=== PATIENT | male | born 1960 | race African-American/Black ===

== ENCOUNTER 2020-04-18 06:29 | Outpatient (REF) | payer SELFPAY ==
[2020-04-18 07:50] LABS: Alanine Aminotransferase 26 U/L (0-40); Albumin Level 4.2 g/dL (3.5-5.0); Alkaline Phosphatase 57 U/L (39-117); Aspartate Amino Transferase 21 U/L (5-37); Bilirubin Direct 0.2 mg/dL (0.0-0.5); Bilirubin Total 0.7 mg/dL (0.0-1.0); Cholesterol 121 mg/dL; Glucose Fasting 113 mg/dL (60-99); HDL Cholesterol 36 mg/dL; LDL Cholesterol Calculated 65 mg/dl; Total Protein 6.7 g/dL (6.5-8.0); Triglycerides 101 mg/dL
[2020-04-18 07:56] LABS: Estimated Average Glucose 143 mg/dL; Hemoglobin A1C 185.9212 umol/L; Hemoglobin A1c % 6.6 %
== END 2020-04-18 06:30 | disposition home or self-care (01) ==
LOC: HO.LAB 06:29
PROVIDERS: PCP Internal Medicine; Visit Provider Internal Medicine
DX: E78.00 Pure hypercholesterolemia, unspecified (principal); E11.9 Type 2 diabetes mellitus without complications
CPT/HCPCS: 80061; 80076; 82947; 83036

== ENCOUNTER 2020-12-12 12:51 | Outpatient (REF) | payer MEDICARE, MEDICAID, SELFPAY ==
[2020-12-12 13:22] LABS: Estimated Average Glucose 177 mg/dL; Hemoglobin A1c % 7.8 %
[2020-12-12 14:03] LABS: Alanine Aminotransferase 17 U/L (0-40); Albumin Level 4.2 g/dL (3.5-5.0); Alkaline Phosphatase 58 U/L (39-117); Aspartate Amino Transferase 15 U/L (5-37); Bilirubin Direct 0.2 mg/dL (0.0-0.5); Bilirubin Total 0.7 mg/dL (0.0-1.0); Cholesterol 134 mg/dL; Glucose Fasting 114 mg/dL (60-99); HDL Cholesterol 38 mg/dL; LDL Cholesterol Calculated 76 mg/dl; Total Protein 6.9 g/dL (6.5-8.0); Triglycerides 100 mg/dL
[2020-12-12 14:16] LABS: Reflex LDLD? No
== END 2020-12-12 12:52 | disposition home or self-care (01) ==
LOC: HO.LNP 12:51
PROVIDERS: Visit Provider Internal Medicine
DX: E11.9 Type 2 diabetes mellitus without complications (principal); E78.00 Pure hypercholesterolemia, unspecified
CPT/HCPCS: 80061; 80076; 82947; 83036

== ENCOUNTER 2021-06-26 10:25 | Outpatient (REF) | payer MEDICARE, MEDICAID, SELFPAY ==
[2021-06-26 10:28] LABS: MANUAL DIFF FLAG NO
[2021-06-26 11:19] LABS: Basophils Absolute Auto 0.1 X10*3/uL (0.0-0.2); Basophils Percent Auto 0.9 % (0-2); Eosinophils Absolute Auto 0.2 X10*3/uL (0.0-0.4); Eosinophils Percent Auto 3.6 % (0-4); Hematocrit 48.9 % (42.0-52.0); Imm Gran Abs Auto 0.04 X10*3/uL (0.00-0.03); Imm Gran Pct Auto 0.6 % (0.0-0.4); Lymphocytes Absolute Auto 2.5 X10*3/uL (1.2-4.9); Lymphocytes Percent Auto 40.2 % (20-40); Mean Corpuscular HGB Conc 30.7 g/dl (31.0-36.0); Mean Corpuscular Hemoglobin 27.3 pg (27.0-33.0); Mean Corpuscular Volume 89.1 fL (80.0-98.0); Mean Platelet Volume 10.5 fL (9.4-12.4); Monocytes Absolute Auto 0.6 X10*3/uL (0.1-1.2); Monocytes Percent Auto 9.3 % (2-11); Neutrophils Absolute Auto 2.9 x10*3/uL (2.0-8.3); Neutrophils Percent Auto 45.4 % (45-73); Platelet Count 207 X10*3/uL (160-400); Red Blood Count 5.49 X10*6/uL (4.60-5.80); White Blood Count 6.3 X10*3/uL (4.8-10.8)
[2021-06-26 11:24] LABS: Appearance Urine CLEAR; Color Urine YELLOW; Glucose Urine UA NEG (NEG); Leukocyte Esterase Urine NEG (NEG); Nitrite Urine NEG (NEG); PH 5.5 (5.0-8.0); Specific Gravity - Urine >= 1.030 (1.005-1.025); Urine Blood NEG (NEG); Urine Ketones NEG (NEG); Urine Protein TRACE MG/DL (NEG-TRACE)
[2021-06-26 11:32] LABS: Alanine Aminotransferase 21 U/L (0-40); Albumin Level 4.1 g/dL (3.5-5.0); Alkaline Phosphatase 59 U/L (39-117); Anion Gap 11 (12-20); Aspartate Amino Transferase 14 U/L (5-37); Bilirubin Total 0.5 mg/dL (0.0-1.0); Blood Urea Nitrogen 17 mg/dL (9-16); Calcium 9.8 mg/dL (8.4-10.2); Carbon Dioxide 30 mmol/L (22-29); Chloride 106 mmol/L (96-108); Cholesterol 142 mg/dL; Estimated Average Glucose 186 mg/dL; Estimated Glomerular Filt Rate > 60; Glucose Fasting 157 mg/dL (60-99); HDL Cholesterol 34 mg/dL; Hemoglobin A1c % 8.1 %; LDL Cholesterol Calculated 82 mg/dl; Potassium 4.4 mmol/L (3.3-5.1); Sodium 143 mmol/L (135-145); Triglycerides 131 mg/dL
[2021-06-26 11:53] LABS: PSA,Total (Free>4and<10) 0.67 ng/mL (0.00-4.00)
[2021-06-26 11:57] LABS: Creatinine Urine 190.24 mg/dL; Microalbum/Creatinine Ratio Ur 51.5 ug/mg cr
[2021-06-26 12:51] LABS: Reflex LDLD? No
== END 2021-06-26 10:26 | disposition home or self-care (01) ==
LOC: HO.LNP 10:25
PROVIDERS: PCP Internal Medicine; Visit Provider Internal Medicine
DX: R79.9 Abnormal finding of blood chemistry, unspecified (principal); I10 Essential (primary) hypertension; E11.9 Type 2 diabetes mellitus without complications; E78.00 Pure hypercholesterolemia, unspecified; D72.820 Lymphocytosis (symptomatic)
CPT/HCPCS: 80053; 80061; 81003; 82043; 83036; 84153; 84154; 85025

== ENCOUNTER 2021-12-12 10:21 | Outpatient (REF) | payer MEDICARE, MEDICAID, SELFPAY ==
[2021-12-12 11:26] LABS: Estimated Average Glucose 194 mg/dL; Hemoglobin A1c % 8.4 %
[2021-12-12 11:38] LABS: Alanine Aminotransferase 18 U/L (0-40); Albumin Level 4.3 g/dL (3.5-5.0); Alkaline Phosphatase 61 U/L (39-117); Aspartate Amino Transferase 13 U/L (5-37); Bilirubin Direct 0.2 mg/dL (0.0-0.5); Bilirubin Total 0.7 mg/dL (0.0-1.0); Cholesterol 148 mg/dL; Glucose Fasting 200 mg/dL (60-99); HDL Cholesterol 33 mg/dL; LDL Cholesterol Calculated 88 mg/dl; Total Protein 7.3 g/dL (6.5-8.0); Triglycerides 136 mg/dL
[2021-12-12 12:58] LABS: Reflex LDLD? No
== END 2021-12-12 10:22 | disposition home or self-care (01) ==
LOC: HO.LNP 10:21
PROVIDERS: PCP Internal Medicine; Visit Provider Internal Medicine
DX: E11.9 Type 2 diabetes mellitus without complications (principal); E78.00 Pure hypercholesterolemia, unspecified
CPT/HCPCS: 80061; 80076; 82947; 83036

== ENCOUNTER 2022-06-29 07:45 | Outpatient (REF) | payer MEDICARE, MEDICAID, SELFPAY ==
[2022-06-29 12:09] LABS: MANUAL DIFF FLAG NO
[2022-06-29 12:30] LABS: Basophils Percent Auto 0.7 % (0-2); Eosinophils Absolute Auto 0.2 X10*3/uL (0.0-0.4); Eosinophils Percent Auto 3.7 % (0-4); Hematocrit 51.1 % (42.0-52.0); Hemoglobin 15.8 g/dl (14.0-18.0); Imm Gran Abs Auto 0.02 X10*3/uL (0.00-0.03); Imm Gran Pct Auto 0.4 % (0.0-0.4); Lymphocytes Absolute Auto 2.3 X10*3/uL (1.2-4.9); Lymphocytes Percent Auto 40.8 % (20-40); Mean Corpuscular HGB Conc 30.9 g/dl (31.0-36.0); Mean Corpuscular Hemoglobin 26.8 pg (27.0-33.0); Mean Corpuscular Volume 86.8 fL (80.0-98.0); Mean Platelet Volume 10.1 fL (9.4-12.4); Monocytes Absolute Auto 0.6 X10*3/uL (0.1-1.2); Monocytes Percent Auto 11.2 % (2-11); Neutrophils Absolute Auto 2.4 x10*3/uL (2.0-8.3); Neutrophils Percent Auto 43.2 % (45-73); Platelet Count 197 X10*3/uL (160-400); Red Blood Count 5.89 X10*6/uL (4.60-5.80); Red Cell Distribution Width 16.9 % (11.0-16.0); White Blood Count 5.6 X10*3/uL (4.8-10.8)
[2022-06-29 12:33] LABS: Appearance Urine Clear; Color Urine Yellow; Glucose Urine UA >=1000 mg/dL (Negative); Leukocyte Esterase Urine Negative (Negative); Nitrite Urine Negative (Negative); PH 5.5 (5.0-9.0); Specific Gravity - Urine >= 1.030 (1.005-1.025); UMIC TRIGGER UA YES; Urine Blood Negative (Negative); Urine Ketones Negative (Negative); Urine Protein Trace mg/dL (Neg-Trace)
[2022-06-29 12:36] LABS: Bacteria Urine None Seen (None Seen); Hyaline Casts Urine 0-2 /LPF (0-2); RBC Urine 0-2 /HPF (0-2); Squamous Epithelial Cell Urine 0-2 /HPF (0-2); WBC Urine 0-5 /HPF (0-5)
[2022-06-29 12:41] LABS: Estimated Average Glucose 154 mg/dL
[2022-06-29 13:06] LABS: Alanine Aminotransferase 16 U/L (0-40); Albumin Level 4.2 g/dL (3.5-5.0); Alkaline Phosphatase 62 U/L (39-117); Anion Gap 14 (12-20); Aspartate Amino Transferase 15 U/L (5-37); Bilirubin Total 0.7 mg/dL (0.0-1.0); Blood Urea Nitrogen 25 mg/dL (9-16); Calcium 9.9 mg/dL (8.4-10.2); Carbon Dioxide 30 mmol/L (22-29); Chloride 105 mmol/L (96-108); Cholesterol 150 mg/dL; Estimated Glomerular Filt Rate 54; Glucose Fasting 130 mg/dL (60-99); HDL Cholesterol 36 mg/dL; LDL Cholesterol Calculated 93 mg/dl; PSA,Total (Free>4and<10) 0.69 ng/mL (0.00-4.00); Potassium 4.5 mmol/L (3.3-5.1); Sodium 144 mmol/L (135-145); Triglycerides 109 mg/dL
[2022-06-29 13:15] LABS: Creatinine Urine 118.36 mg/dL; Microalbum/Creatinine Ratio Ur 32.1 ug/mg cr
== END 2022-06-29 07:46 | disposition home or self-care (01) ==
LOC: HO.LNP 07:45
PROVIDERS: Visit Provider Internal Medicine
DX: Z00.00 Encounter for general adult medical examination without abnormal findings (principal); Z12.5 Encounter for screening for malignant neoplasm of prostate; I12.9 Hypertensive chronic kidney disease with stage 1 through stage 4 chronic kidney disease, or unspecified chronic kidney disease; E11.22 Type 2 diabetes mellitus with diabetic chronic kidney disease; N18.9 Chronic kidney disease, unspecified; D72.820 Lymphocytosis (symptomatic); E78.00 Pure hypercholesterolemia, unspecified
CPT/HCPCS: 80053; 80061; 81001; 82043; 83036; 84153; 85025

== ENCOUNTER 2022-10-05 11:41 | Outpatient (REF) | payer MEDICARE, MEDICAID, SELFPAY ==
[2022-10-05 12:30] LABS: Estimated Average Glucose 163 mg/dL; Hemoglobin A1c % 7.3 %
[2022-10-05 12:33] LABS: Alanine Aminotransferase 18 U/L (0-40); Albumin Level 4.2 g/dL (3.5-5.0); Alkaline Phosphatase 60 U/L (39-117); Aspartate Amino Transferase 16 U/L (5-37); Bilirubin Direct < 0.2 mg/dL (0.0-0.5); Bilirubin Total 0.6 mg/dL (0.0-1.0); Cholesterol 140 mg/dL; Glucose Fasting 131 mg/dL (60-99); HDL Cholesterol 36 mg/dL; LDL Cholesterol Calculated 88 mg/dl; Total Protein 6.8 g/dL (6.5-8.0); Triglycerides 81 mg/dL
[2022-10-05 13:57] LABS: Reflex LDLD? No
== END 2022-10-05 11:42 | disposition home or self-care (01) ==
LOC: HO.LNP 11:41
PROVIDERS: Visit Provider Internal Medicine
DX: E11.9 Type 2 diabetes mellitus without complications (principal); E78.00 Pure hypercholesterolemia, unspecified
CPT/HCPCS: 80061; 80076; 82947; 83036

== ENCOUNTER 2022-12-28 10:58 | Outpatient (REF) | payer MEDICARE, MEDICAID, SELFPAY ==
[2022-12-28 12:03] LABS: Estimated Average Glucose 143 mg/dL; Hemoglobin A1c % 6.6 %
[2022-12-28 12:11] LABS: Alanine Aminotransferase 19 U/L (0-40); Albumin Level 4.3 g/dL (3.5-5.0); Alkaline Phosphatase 59 U/L (39-117); Aspartate Amino Transferase 16 U/L (5-37); Bilirubin Direct 0.2 mg/dL (0.0-0.5); Bilirubin Total 0.7 mg/dL (0.0-1.0); Cholesterol 137 mg/dL; Glucose Fasting 120 mg/dL (60-99); HDL Cholesterol 37 mg/dL; LDL Cholesterol Calculated 83 mg/dl; Total Protein 6.9 g/dL (6.5-8.0); Triglycerides 88 mg/dL
[2022-12-28 13:53] LABS: Reflex LDLD? No
== END 2022-12-28 10:59 | disposition home or self-care (01) ==
LOC: HO.LNP 10:58
PROVIDERS: Visit Provider Internal Medicine
DX: E11.9 Type 2 diabetes mellitus without complications (principal); E78.00 Pure hypercholesterolemia, unspecified
CPT/HCPCS: 80061; 80076; 82947; 83036

== ENCOUNTER 2023-07-05 11:20 | Outpatient (REF) | payer MEDICARE, MEDICAID, SELFPAY ==
[2023-07-05 11:28] LABS: MANUAL DIFF FLAG NO
[2023-07-05 11:36] LABS: Appearance Urine Clear; Basophils Percent Auto 0.7 % (0-2); Color Urine Yellow; Eosinophils Absolute Auto 0.2 X10*3/uL (0.0-0.4); Glucose Urine UA 500 mg/dL (Negative); Hematocrit 51.6 % (42.0-52.0); Hemoglobin 15.7 g/dl (14.0-18.0); Imm Gran Abs Auto 0.03 X10*3/uL (0.00-0.03); Imm Gran Pct Auto 0.5 % (0.0-0.4); Leukocyte Esterase Urine Negative (Negative); Lymphocytes Absolute Auto 2.2 X10*3/uL (1.2-4.9); Lymphocytes Percent Auto 39.6 % (20-40); Mean Corpuscular HGB Conc 30.4 g/dl (31.0-36.0); Mean Corpuscular Volume 88.8 fL (80.0-98.0); Mean Platelet Volume 10.6 fL (9.4-12.4); Monocytes Absolute Auto 0.6 X10*3/uL (0.1-1.2); Monocytes Percent Auto 10.2 % (2-11); Neutrophils Absolute Auto 2.6 x10*3/uL (2.0-8.3); Nitrite Urine Negative (Negative); PH 5.5 (5.0-9.0); Platelet Count 195 X10*3/uL (160-400); Red Blood Count 5.81 X10*6/uL (4.60-5.80); Red Cell Distribution Width 15.8 % (11.0-16.0); Specific Gravity - Urine >= 1.030 (1.005-1.025); Urine Blood Negative (Negative); Urine Ketones Negative (Negative); Urine Protein Trace mg/dL (Neg-Trace); White Blood Count 5.6 X10*3/uL (4.8-10.8)
[2023-07-05 11:41] LABS: Bacteria Urine None Seen (None Seen); Hyaline Casts Urine 0-2 /LPF (0-2); RBC Urine 0-2 /HPF (0-2); Squamous Epithelial Cell Urine 0-2 /HPF (0-2); WBC Urine 0-5 /HPF (0-5)
[2023-07-05 11:51] LABS: Alanine Aminotransferase 23 U/L (0-40); Albumin Level 4.3 g/dL (3.5-5.0); Alkaline Phosphatase 63 U/L (39-117); Anion Gap 14 (12-20); Aspartate Amino Transferase 20 U/L (5-37); Bilirubin Total 0.6 mg/dL (0.0-1.0); Blood Urea Nitrogen 25 mg/dL (9-16); Calcium 9.7 mg/dL (8.4-10.2); Carbon Dioxide 28 mmol/L (22-29); Chloride 105 mmol/L (96-108); Cholesterol 148 mg/dL (<200); Estimated Glomerular Filt Rate 57; Glucose Random 150 mg/dL (60-115); HDL Cholesterol 41 mg/dL (>40); LDL Cholesterol Calculated 82 mg/dL (<100); Potassium 4.5 mmol/L (3.3-5.1); Sodium 142 mmol/L (135-145); Total Protein 7.4 g/dL (6.5-8.0); Triglycerides 125 mg/dL (<150)
[2023-07-05 12:05] LABS: Estimated Average Glucose 157 mg/dL; Hemoglobin A1c % 7.1 % (<6.0)
[2023-07-05 12:10] LABS: Creatinine Urine 119.15 mg/dL; Microalbum/Creatinine Ratio Ur 56.2 ug/mg cr (<30)
[2023-07-05 12:13] LABS: PSA,Total (Free>4and<10) 0.78 ng/mL (0.00-4.00)
== END 2023-07-05 11:21 | disposition home or self-care (01) ==
LOC: HO.LNP 11:20
PROVIDERS: Visit Provider Internal Medicine
DX: Z00.00 Encounter for general adult medical examination without abnormal findings (principal); I10 Essential (primary) hypertension; E11.9 Type 2 diabetes mellitus without complications; E78.00 Pure hypercholesterolemia, unspecified; N18.9 Chronic kidney disease, unspecified; D72.820 Lymphocytosis (symptomatic); Z12.5 Encounter for screening for malignant neoplasm of prostate
CPT/HCPCS: 80053; 80061; 81001; 82043; 82570; 83036; 84153; 85025

== ENCOUNTER 2024-01-13 11:20 | Outpatient (REF) | payer MEDICARE, MEDICAID, SELFPAY ==
[2024-01-13 12:11] LABS: Estimated Average Glucose 160 mg/dL; Hemoglobin A1c % 7.2 % (<6.0)
[2024-01-13 12:12] LABS: Alanine Aminotransferase 23 U/L (0-40); Albumin Level 4.2 g/dL (3.5-5.0); Alkaline Phosphatase 62 U/L (39-117); Aspartate Amino Transferase 20 U/L (5-37); Bilirubin Direct 0.2 mg/dL (0.0-0.5); Bilirubin Total 0.5 mg/dL (0.0-1.0); Cholesterol 135 mg/dL (<200); Glucose Fasting 130 mg/dL (60-99); HDL Cholesterol 39 mg/dL (>40); LDL Cholesterol Calculated 77 mg/dL (<100); Total Protein 7.1 g/dL (6.5-8.0); Triglycerides 99 mg/dL (<150)
[2024-01-13 14:20] LABS: Reflex LDLD? No
== END 2024-01-13 11:21 | disposition home or self-care (01) ==
LOC: HO.LNP 11:20
PROVIDERS: Visit Provider Internal Medicine
DX: E11.9 Type 2 diabetes mellitus without complications (principal); E78.00 Pure hypercholesterolemia, unspecified
CPT/HCPCS: 80061; 80076; 82947; 83036

== ENCOUNTER 2024-07-10 11:05 | Outpatient (REF) | payer MEDICARE, MEDICAID, SELFPAY ==
[2024-07-10 11:09] LABS: MANUAL DIFF FLAG NO
[2024-07-10 11:24] LABS: Basophils Absolute Auto 0.1 X10*3/uL (0.0-0.2); Basophils Percent Auto 1.1 % (0-2); Eosinophils Absolute Auto 0.2 X10*3/uL (0.0-0.4); Eosinophils Percent Auto 3.7 % (0-4); Hemoglobin 15.8 g/dl (14.0-18.0); Imm Gran Abs Auto 0.02 X10*3/uL (0.00-0.03); Imm Gran Pct Auto 0.4 % (0.0-0.4); Lymphocytes Absolute Auto 2.2 X10*3/uL (1.2-4.9); Lymphocytes Percent Auto 39.4 % (20-40); Mean Corpuscular HGB Conc 30.4 g/dl (31.0-36.0); Mean Corpuscular Hemoglobin 27.1 pg (27.0-33.0); Mean Corpuscular Volume 89.2 fL (80.0-98.0); Mean Platelet Volume 9.8 fL (9.4-12.4); Monocytes Absolute Auto 0.6 X10*3/uL (0.1-1.2); Monocytes Percent Auto 10.3 % (2-11); Neutrophils Absolute Auto 2.5 x10*3/uL (2.0-8.3); Neutrophils Percent Auto 45.1 % (45-73); Platelet Count 189 X10*3/uL (160-400); Red Blood Count 5.83 X10*6/uL (4.60-5.80); Red Cell Distribution Width 16.8 % (11.0-16.0); White Blood Count 5.5 X10*3/uL (4.8-10.8)
[2024-07-10 11:25] LABS: Appearance Urine Clear; Color Urine Yellow; Glucose Urine UA >=1000 mg/dL (Negative); Leukocyte Esterase Urine Negative (Negative); Nitrite Urine Negative (Negative); PH 5.5 (5.0-9.0); Specific Gravity - Urine >= 1.030 (1.005-1.025); UMIC TRIGGER UACC YES; Urine Blood Negative (Negative); Urine Ketones Negative (Negative); Urine Protein 30 (1+) mg/dL (Neg-Trace)
[2024-07-10 11:30] LABS: Bacteria Urine None Seen (None Seen); Hyaline Casts Urine 0-2 /LPF (0-2); RBC Urine 0-2 /HPF (0-2); Squamous Epithelial Cell Urine 0-2 /HPF (0-2); WBC Urine 0-5 /HPF (0-5)
[2024-07-10 11:56] LABS: Creatinine Urine 131.57 mg/dL; Microalbum/Creatinine Ratio Ur 55.4 ug/mg cr (<30)
[2024-07-10 11:58] LABS: Estimated Average Glucose 157 mg/dL; Hemoglobin A1C 214.4074 umol/L; Hemoglobin A1c % 7.1 % (<6.0); Total Hemoglobin (HGBA1C) 3968.0073 umol/L
[2024-07-10 12:05] LABS: Alanine Aminotransferase 22 U/L (0-40); Albumin Level 4.3 g/dL (3.5-5.0); Alkaline Phosphatase 68 U/L (39-117); Anion Gap 12 (12-20); Aspartate Amino Transferase 30 U/L (5-37); Bilirubin Total 0.6 mg/dL (0.0-1.0); Blood Urea Nitrogen 20 mg/dL (9-16); Calcium 9.2 mg/dL (8.4-10.2); Carbon Dioxide 28 mmol/L (22-29); Chloride 107 mmol/L (96-108); Cholesterol 138 mg/dL (<200); Estimated Glomerular Filt Rate > 60; Glucose Fasting 133 mg/dL (60-99); HDL Cholesterol 33 mg/dL (>40); LDL Cholesterol Calculated 84 mg/dL (<100); Potassium 4.1 mmol/L (3.3-5.1); Sodium 143 mmol/L (135-145); Total Protein 7.2 g/dL (6.5-8.0); Triglycerides 108 mg/dL (<150)
[2024-07-10 12:09] LABS: PSA,Total (Free>4and<10) 0.85 ng/mL (0.00-4.00)
--- OUTSIDE RECORDS SUMMARY | 2024-07-10 12:55 | XMS_ITS ---
Author Organization Srinivas Moya MD Address [address] [place] [address] [phone] Support Name Relationship Address Phone Jose Stovall Caregiver [address] [facility] [address] [place] [address] [phone] Srinivas Moya Caregiver [facility] [address] [place] [address] [phone] Easton Douglas Caregiver [address] [facility] [address] janette [address] [place] [address] [id number] Gonzalez Subramanian Caregiver [address] [facility] [address] [place] [address] [id number] GRETCHEN MCCULLOUGH Caregiver [address] [facility] [address] [place] [address] [phone] PEGGY TREADWELL Caregiver 10 [facility] [address] [place] [address] [phone] Krysta Dominique Caregiver [address] [facility] [address] [place] [address] [phone] MASSIEL NUÑEZ Caregiver [address] [facility] [address] [place] [address] [phone] Oscar Duran Caregiver 10 [facility] [address] [place] [address] [phone] GIGI CROWLEY Emergency Contact [address] [place] [phone] Maximiliano Ovalle Guarantor Unknown [phone] Care Team Providers Care Credit Collections Manager Name Role Phone Srinivas Moya Primary Care Provider RESULTS Component Value Reference Range Notes Complete Blood Count Auto Di ff (Not yet reviewed by provider) Interpretation: Performing Lab:[facility], [address] [place] [phone] Notes/Report: White Blood Count 5.5 4.8-10.8 X10*3/uL Red Blood Count 5.83 4.60-5.80 X10*6/uL Hemoglobin 15.8 14.0-18.0 g/dl Hematocrit 52.0 42.0-52.0 % Mean Corpuscular Volume 89.2 80.0-98.0 fL Mean Corpuscular Hemoglobin 27.1 27.0-33.0 pg Mean Corpuscular HGB Conc 30.4 31.0-36.0 g/dl Red Cell Distribution Width 16.8 11.0-16.0 % Platelet Count 189 160-400 X10*3/uL Mean Platelet Volume 9.8 9.4-12.4 fL Neutrophils Percent Auto 45.1 45-73 % Imm Gran Pct Auto 0.4 0.0-0.4 % Lymphocytes Percent Auto 39.4 20-40 % Monocytes Percent Auto 10.3 2-11 % Eosinophils Percent Auto 3.7 0-4 % Basophils Percent Auto 1.1 0-2 % NRBC Pct Auto 0.0 0.0-0.2 /100WBC Neutrophils Absolute Auto 2.5 2.0-8.3 x10*3/u L Imm Gran Abs Auto 0.02 0.00-0.03 X10*3/uL Lymphocytes Absolute Auto 2.2 1.2-4.9 X10*3/u L Monocytes Absolute Auto 0.6 0.1-1.2 X10*3/uL Eosinophils Absolute Auto 0.2 0.0-0.4 X10*3/u L Basophils Absolute Auto 0.1 0.0-0.2 X10*3/uL NRBC Abs Auto 0.000 0.0-0.012 X10*3/uL Comprehensive [place]. Panel Fa st (Not yet reviewed by provider) Interpretation: Performing Lab:[facility], [address] [place] [phone] Notes/Report: Sodium 143 135-145 mmol/L Potassium 4.1 3.3-5.1 mmol/L Chloride 107 96-108 mmol/L Carbon Dioxide 28 22-29 mmol/L Anion Gap 12 12-20 Blood Urea Nitrogen 20 9-16 mg/dL Creatinine 1.16 0.5-1.4 mg/dL Estimated Glomerular Filt Rate > 60 Chronic Kidney Disease: Estimated GFR < 60 mL/min/1.73m2 Severe Kidney Disease: Estimated GFR < 15 mL/min/1.73m2 Glucose Fasting 133 60-99 mg/dL A fasting glucose of 126 mg/dl or greater on more than one occasion is considered diagnostic of diabetes. Calcium 9.2 8.4-10.2 mg/dL Bilirubin Total 0.6 0.0-1.0 mg/dL Aspartate Amino Transferase 30 5-37 U/L Alanine Aminotransferase 22 0-40 U/L Total Protein 7.2 6.5-8.0 g/dL Albumin Level 4.3 3.5-5.0 g/dL Alkaline Phosphatase 68 39-117 U/L Lipid Panel Reviewed date:07/10/2024 12:20:14 PM Interpretation: Performing Lab:[address] [phone] Notes/Report: Triglycerides 108 <150 mg/dL Desirable Triglyceride: less than 150 mg/dL Borderline High Triglyceride 150-199 mg/dL High Triglyceride: 200-499 mg/dL Very High Triglyceride: greater than or equal to 5OO mg/dL Cholesterol 138 <200 mg/dL Desirable Cholesterol: less than 200 mg/dL Borderline High Cholesterol: 200-239 mg/dL High Cholesterol: greater than 239 mg/dL LDL Cholesterol Calculated 84 <100 mg/dL Desirable LDL: less than 100 mg/dL Near Optimal/Above Optimal LDL: 110-129 mg/dL Borderline High LDL: 130-159 mg/dL High LDL: 160-189 mg/dL Very High LDL: greater than or equal to 190 mg/dL HDL Cholesterol 33 >40 mg/dL Desirable HDL: greater than 40 mg/dL Note: This HDL assay may give artificially low results in patients with liver disease. PSA,Total (Free>4and<10) Reviewed date:07/10/2024 12:26:54 PM Interpretation: Performing Lab:[address] [phone] Notes/Report: PSA,Total (Free>4and<10) 0.85 0.00-4.00 ng/mL A Free PSA was not performed: The percentage of Free PSA can be used to enhance the differentiation of prostate cancer from benign prostatic disease in subjects whose PSA levels are between 4.0 and 10.0 ng/mL. For subjects whose PSA levels are below 4.0 or above 10.0 ng/mL, the risk of prostate cancer is determined on the basis of the PSA alone. Therefore the % Free PSA is recommended only for those subjects whose PSA levels are between 4.0 and 10.0 ng/mL. PSA methodology: Tran Alinity i Chemiluminescent Microparticle Immunoassay (CMIA) Microalbumin, Random Reviewed date:07/10/2024 12:26:44 PM Interpretation: Performing Lab:[address] [phone] Notes/Report: Creatinine Urine 131.57 Microalbumin Urine 73.0 Microalbum/Creatinine Ratio Ur 55.4 <30 ug/mg cr Albumin/Creatinine Ratio Reference Ranges: Normal: < 30 ug/mg creatinine Microalbuminuria: 30 - 300 ug/mg creatinine Clinical Albuminuria: > 300 ug/mg creatinine Hemoglobin A1c Reviewed date:07/10/2024 12:27:02 PM Interpretation: Performing Lab:[address] [phone] Notes/Report: Hemoglobin A1c % 7.1 <6.0 % Hemoglobin A1C Reference Range Adults: 4.8 - 6.0 % Non diabetic: < 6.0 % Goal: < 7.0 % Additional Action Suggested: > 8.0 % Note: Hemoglobin A1c results are invalid for patients with abnormal amounts of HbF. Blood transfusions may impact the HbA1c concentration in the patient sample. Estimated Average Glucose 157 eAG = Estimated average glucose which is %A1C expressed as average glucose, using the formula of the [id number]-[id number] Average Glucose study (ADAG), Diabetes Care, Vol.31,#8, Feb. 2007 UA ClnCatch+Micro w/rflx Cul t Reviewed date:07/10/2024 12:31:34 PM Interpretation: Performing Lab:[address] [phone] Notes/Report: Urine, Clean Catch Color Urine Yellow Appearance Urine Clear PH 5.5 5.0-9.0 Glucose Urine UA >=1000 Negative mg/dL Urine Blood Negative Negative Specific [place] - Urine >= 1.030 1.005-1.025 Urine Protein 30 (1+) Neg-Trace mg/dL Urine Ketones Negative Negative mg/dL Nitrite Urine Negative Negative Leukocyte Esterase Urine Negative Negative RBC Urine 0-2 0-2 /HPF WBC Urine 0-5 0-5 /HPF Squamous Epithelial Cell Urine 0-2 0-2 /HPF Bacteria Urine None Seen None Seen Hyaline Casts Urine 0-2 0-2 /LPF REASON FOR VISIT FASTING LABS Encounters Encounter Location Date Provider Diagnosis Srinivas Moya MD [address] [place] [address] [address] [place], [place] [phone] 07/10/2024 Srinivas Moya Essential hypertensi on I10 ; Type 2 diabetes mellitus without complication E11.9 ; Pure hypercholesterolemia E78.00 ; Chronic kidney disease, unspecified CKD stage N18.9 and Lymphocytosis D72.820 ASSESSMENTS Encounter Date Diagnosis Assessment Notes Treatment Notes Treatment Clinical Notes 07/10/2024 Essential hypertensi on (ICD-10 - I10) 07/10/2024 Type 2 diabetes genna itus without complication (ICD-10 - E11.9) 07/10/2024 Pure hypercholestero lemia (ICD-10 - E78.00) 07/10/2024 Chronic kidney disea se, unspecified CKD stage (ICD-10 - N18.9) 07/10/2024 Lymphocytosis (ICD-1 0 - D72.820) PLAN OF TREATMENT Pending Test Test Name Order Date Complete Blood Count Auto Diff 5 Comprehensive [place]. Panel Fast 5 Next Appt Details Provider Name:Srinivas pierson, 07/16/2024 08:30:00 AM, [address] [place] [address], [address], [place], [place], [phone],
--- OUTSIDE RECORDS SUMMARY | 2024-07-10 12:56 | XMS_ITS ---
Author Organization Srinivas Moya MD Address [address] [place] [address] [phone] Support Name Relationship Address Phone Jose Stovall Caregiver 10 [facility] [address] [facility] [address] [place] [address] [phone] Srinivas M[facility] [address] [place] [address] [phone] MisaelEaston Caregiver [address] [facility] [address] janette [address] [place] [address] [phone] Gonzalez Subramanian Caregiver [address] [facility] [address] [place] [address] [id number] GRETCHEN MCCULLOUGH Caregiver [address] [facility] [address] [place] [address] [phone] PEGGY TREADWELL Caregiver 10 [facility] [address] [place] [address] [phone] Krysta Dominique Caregiver [address] [facility] [address] [place] [address] [phone] MASSIEL NUÑEZ Caregiver 10 [facility] [address] [place] [address] [phone] Oscar Duran Caregiver [facility] [address] [place] [address] [phone] GIGI CROWLEY Emergency Contact [address] [place] [phone] Maximiliano Ovalle Guarantor Unknown [phone] Care Team Providers Care Cloth Colors Examiner Name Role Phone Srinivas Moya Primary Care Provider [phone] REASON FOR VISIT REFILL FUEROSIMIDE 20 MG MEDICATIONS Medication SIG (Take, Route, Fr equency, Duration) Notes Start Date End Date Status Furosemide 20MG 1 tab orally Twice a day for 90 days Active Encounters Encounter Location Date Provider Diagnosis Srinivas Moya MD [address] [place] [address] [address] [place], [place] [phone] 04/10/2024 Srinivas Moya PLAN OF TREATMENT Medication Medication Name Sig Start Date Stop Date Notes Furosemide 20MG 1 tab orally Twice a day for 90 days Next Appt Details Provider Name:Srinivas pierson, 07/16/2024 08:30:00 AM, [address] [place] [address], [address], [place], [place], [phone],
--- OUTSIDE RECORDS SUMMARY | 2024-07-10 12:56 | XMS_ITS ---
Author Organization Srinivas Moya MD Address [address] [place] [address] [phone] Support Name Relationship Address Phone Jose Stovall Caregiver 10 [facility] [address] [place] [address] [phone] Srinivas Moya [facility]giver [facility] [address] [place] [address] [phone] MisaelEaston Caregiver [address] [facility] [address]ette [address] [place] [address] [id number] Gonzalez Subramanian Caregiver 10 [facility] [address] [place] [address] [id number] GRETCHEN MCCULLOUGH Caregiver 10 [facility] [address] [place] [address] [id number] PEGGY TREADWELL Caregiver 10 [facility] [address] [place] [address] [id number] Krysta Dominique Caregiver 10 [facility] [address] [place] [address] [id number] MASSIEL NUÑEZ Caregiver 10 [facility] [address] [place] [address] [id number] Oscar Duran Caregiver 10 [facility] [address] [place] [address] [phone] GIGI CROWLEY Emergency Contact [address] [place] [address] Maximiliano Ovalle Guarantor Unknown Care Team Providers Care Flat Spring Assembler Name Role Phone Srinivas Moya Primary Care Provider [phone] ALLERGIES Allergen (clinical drug ingredient) Drug/Non Drug Allergy documented on EMR Reaction Allergy Type Onset Date Status Vaccine product containing Influenza virus antigen (medicinal product) flu vaccine (uncoded) hives Allergy Active REASON FOR VISIT talk about Furosemide MEDICATIONS Medication SIG (Take, Route, Frequency, Duration) Notes Start Date End Date Status Indomethacin 50 1 capsule with food Orally Three times a day for 30 days Active Aspir-81 81 MG 1 tablet Orally Once a day Active Cialis 20MG take 1 tablet as nee ded Orally Once a day for 90 days Active Ibuprofen 800 MG 1 tablet Orally Thre e times a day for 90 days Active True Metrix Blood Glucose Test - TEST BS QD In Vitro daily for 90 days 06/17/2019 Active Furosemide 20 MG 1 tablet Orally Once a day for 30 day(s) 04/14/2024 Active Farxiga 10 MG TAKE 1 TABLET BY EDGARDO TH EVERY DAY Orally Once a day Active metFORMIN HCl 1000 MG TAKE 1 TABLET BY M OUT TWICE DAILY WITH MEALS Active True Focus Blood Glucose Strip - as directed In Vitro daily for 30 Active TRUEplus Lancets 30G - use to check suga r invitro twice a day for 30 Active Lisinopril 5 MG TAKE 1 TABLET BY EDGARDO TH EVERY DAY Active Simvastatin 80 MG 1 tablet in the even ing Orally Once a day 07/18/2023 Active Furosemide 20MG 1 tab orally Twice a day for 90 days Active VITAL SIGNS BMI 45.29 kg/m2 04/14/2024 Blood pressure systolic 142 mm Hg 04/14/20 24 Blood pressure diastolic 78 mm Hg 024 Height 72 in 04/14/2024 Weight 334 lbs 04/14/2024 weight is up 3 pounds since 01-17-24 Encounters Encounter Location Date Provider Diagnosis Srinivas Moya MD [address] [place] [address] [place] [phone] 04/14/2024 Srinivas Moya Type 2 diabetes mellitus without complication E11.9 and Bilateral leg edema R60.0 ASSESSMENTS Encounter Date Diagnosis Assessment Notes Treatment Notes Treatment Clinical Notes 04/14/2024 Type 2 diabetes mellitus without complication (ICD-10 - E11.9) sugars in 120 range and after eating 180 04/14/2024 Bilateral leg edema (ICD-10 - R60.0) patient verbalized nderstanding of medication and directions for use, will continue to monitor PLAN OF TREATMENT Medication Medication Name Sig Start Date Stop Date Notes Furosemide 20 MG 1 tablet Orally Once a day for 30 day(s) 04/14/2024 Farxiga 10 MG TAKE 1 TABLET BY EDGARDO TH EVERY DAY Orally Once a day metFORMIN HCl 1000 MG TAKE 1 TABLET BY M OUTH TWICE DAILY WITH MEALS Treatment Notes Assessment Notes Type 2 diabetes mellitus wit hout complication sugars in 120 range and after eating 180 Bilateral leg edema patient verbalized n derstanding of medication and directions for use, will continue to monitor Next Appt Details Provider Name:Srinivas pierson, 07/16/2024 08:30:00 AM, [address] [place] [address], [address], [place], [place], [phone], Progress Notes * Examination Category Sub-Category Detail Notes General Examination GENERAL APPEARANCE: alert, w ell hydrated, in no distress HEAD: normocephalic HEART: no murmurs, rubs, ga llops, regular rate and rhythm LUNGS: no wheezes, rales, r honchi, good air movement, clear to auscultation bilaterally SKIN: good turgor EXTREMITIES: no edema
--- OUTSIDE RECORDS SUMMARY | 2024-07-10 12:56 | XMS_ITS | Patient Health Record ---
Author Organization Srinivas Moya MD Address [address] [place] [address] [phone] Support Name Relationship Address Phone Jose Stovall Caregiver [facility] [address] [place] [address] [phone] Srinivas Moya Caregiver [facility] [address] [place] [address] [phone] MisaelEaston Caregiver [facility] janette [address] [place] [address] [phone] Gonzalez Subramanian Caregiver [facility] [address] [place] [address] [phone] GRETCHEN MCCULLOUGH Caregiver [facility] [address] [place] [address] [phone] PEGGY TREADWELL Caregiver 10 [facility] [address] [place] [address] [phone] Krysta Dominique Caregiver [facility] [address] [place] [address] [phone] MASSIEL NUÑEZ Caregiver 10 [facility] [address] [place] [address] [phone] Oscar Duran Caregiver 10 [facility] [address] [place] [address] [phone] GIGI CROWLEY Emergency Contact [address] [place] [address] Maximiliano Ovalle Guarantor Unknown Care Team Providers Care Conference Translator Name Role Phone Srinivas Moya Primary Care Provider ALLERGIES Allergen (clinical drug ingredient) Drug/Non Drug Allergy documented on EMR Reaction Allergy Type Onset Date Status Vaccine product containing Influenza virus antigen (medicinal product) flu vaccine (uncoded) hives Allergy Active RESULTS Component Value Reference Range Notes Occult Blood, Stool, Guaiac Reviewed date:07/12/2023 12:01:53 PM Interpretation:Negative Performing Lab: Notes/Report: Negative Occult Blood, Stool, Guaiac Neg Diabetic Eye Exam Reviewed date:01/20/2024 10:57:55 AM Interpretation:No diabetic retinopathy Performing Lab: Notes/Report: No diabetic retinopathy Hold Gold Reviewed date:01/13/2024 12:24:25 PM Interpretation: Performing Lab:[facility], [address] [place] [phone] Notes/Report: Hold Gold See Note Specimen held untested for 24 hours; Call to request Chemistry testing. Liver Panel Reviewed date:01/13/2024 04:51:38 PM Interpretation: Performing Lab:[facility], [address] [place] [phone] Notes/Report: Bilirubin Total 0.5 0.0-1.0 mg/dL Bilirubin Direct 0.2 0.0-0.5 mg/dL Aspartate Amino Transferase 20 5-37 U/L Alanine Aminotransferase 23 0-40 U/L Total Protein 7.1 6.5-8.0 g/dL Albumin Level 4.2 3.5-5.0 g/dL Alkaline Phosphatase 62 39-117 U/L Glucose Fasting Reviewed date:01/13/2024 04:44:22 PM Interpretation: Performing Lab:[facility], [address] [place] [phone] Notes/Report: Glucose Fasting 130 60-99 mg/dL A fasting glucose of 126 mg/dl or greater on more than one occasion is considered diagnostic of diabetes. Lipid Panel with Reflex Reviewed date:01/13/2024 04:49:17 PM Interpretation: Performing Lab:[facility], [address] [place] [phone] Notes/Report: Triglycerides 99 <150 mg/dL Desirable Triglyceride: less than 150 mg/dL Borderline High Triglyceride 150-199 mg/dL High Triglyceride: 200-499 mg/dL Very High Triglyceride: greater than or equal to 5OO mg/dL Cholesterol 135 <200 mg/dL Desirable Cholesterol: less than 200 mg/dL Borderline High Cholesterol: 200-239 mg/dL High Cholesterol: greater than 239 mg/dL LDL Cholesterol Calculated 77 <100 mg/dL Desirable LDL: less than 100 mg/dL Near Optimal/Above Optimal LDL: 110-129 mg/dL Borderline High LDL: 130-159 mg/dL High LDL: 160-189 mg/dL Very High LDL: greater than or equal to 190 mg/dL HDL Cholesterol 39 >40 mg/dL Desirable HDL: greater than 40 mg/dL Note: This HDL assay may give artificially low results in patients with liver disease. Hemoglobin A1c Reviewed date:01/13/2024 12:23:02 PM Interpretation: Performing Lab:[facility], [address] [place] [phone] Notes/Report: Hemoglobin A1c % 7.2 <6.0 % Hemoglobin A1C Reference Range Adults: 4.8 - 6.0 % Non diabetic: < 6.0 % Goal: < 7.0 % Additional Action Suggested: > 8.0 % Note: Hemoglobin A1c results are invalid for patients with abnormal amounts of HbF. Blood transfusions may impact the HbA1c concentration in the patient sample. Estimated Average Glucose 160 eAG = Estimated average glucose which is %A1C expressed as average glucose, using the formula of the J3Y-Qoitisu Average Glucose study (ADAG), Diabetes Care, Vol.31,#8, 2007 Complete Blood Count Auto Di ff (Not yet reviewed by provider) Interpretation: Performing Lab:[facility], [address] [place] [phone] Notes/Report: White Blood Count 5.5 4.8-10.8 X10*3/uL [...] NRBC Abs Auto 0.000 0.0-0.012 X10*3/uL Comprehensive [place]. Panel Fa st (Not yet reviewed by provider) Interpretation: Performing Lab:[address] [phone] Notes/Report: Sodium 143 135-145 mmol/L Potassium 4.1 [...] Panel Reviewed date:07/10/2024 12:20:14 PM Interpretation: Performing Lab:[facility] [phone] Notes/Report: Triglycerides 108 <150 mg/dL Desirable Triglyceride: [...] (Free>4and<10) Reviewed date:07/10/2024 12:26:54 PM Interpretation: Performing Lab:[address] [phone] Notes/Report: PSA,Total (Free>4and<10) 0.85 0.00-4.00 ng/mL A [...] Random Reviewed date:07/10/2024 12:26:44 PM Interpretation: Performing Lab:[address] [phone] Notes/Report: Creatinine Urine 131.57 Microalbumin Urine 73.0 Microalbum/Creatinine Ratio Ur 55.4 <30 ug/mg cr Albumin/Creatinine Ratio Reference Ranges: Normal: < 30 ug/mg creatinine Microalbuminuria: 30 - 300 ug/mg creatinine Clinical Albuminuria: > 300 ug/mg creatinine Hemoglobin A1c Reviewed date:07/10/2024 12:27:02 PM Interpretation: Performing Lab:[facility], [address] [place] [phone] Notes/Report: Hemoglobin A1c % 7.1 <6.0 % [...] average glucose, using the formula of the B3O-[place] Average Glucose study (ADAG), Diabetes Care, Vol.31,#8, Feb. 2007 UA ClnCatch+Micro w/rflx Cul t Reviewed date:07/10/2024 12:31:34 PM Interpretation: Performing Lab:[facility], [address] [place] [phone] Notes/Report: Urine, Clean Catch Color Urine Yellow Appearance Urine Clear PH 5.5 5.0-9.0 Glucose Urine UA >=1000 Negative mg/dL Urine Blood Negative Negative Specific [employer] - Urine >= 1.030 1.005-1.025 Urine Protein 30 (1+) Neg-Trace mg/dL Urine Ketones Negative Negative mg/dL Nitrite Urine Negative Negative Leukocyte Esterase Urine Negative Negative RBC Urine 0-2 0-2 /HPF WBC Urine 0-5 0-5 /HPF Squamous Epithelial Cell Urine 0-2 0-2 /HPF Bacteria Urine None Seen None Seen Hyaline Casts Urine 0-2 0-2 /LPF REASON FOR REFERRAL Reason DM foot care Diagnosis 1 Type 2 diabetes genna itus without complication (E11.9) Referral Organization Srinivas Moya MD Referring Provider First Name Srinivas Referring Provider Last Name Nita Referring Provider Speciality Internal M edicine Referred Provider Milla Cortes Referred Provider Specialty Podiatry General Notes Yvonne Stringer 10:46:02 AM EDT > patient is making his own appt, Info faxed Referral Priority Routine MEDICATIONS Medication SIG (Take, Route, Frequency, Duration) Notes Start Date End Date Status True Focus Blood Glucose Strip - as directed In Vitro daily for 30 Active TRUEplus Lancets 30G - use to check suga r invitro twice a day for 30 Active Aspir-81 81 MG 1 tablet Orally [...] a day for 30 day(s) 04/14/2024 Active Lisinopril 5 MG TAKE 1 TABLET BY EDGARDO TH EVERY DAY Active Indomethacin 50 1 capsule with food Orally Three times a day for 30 days Active Farxiga 10 MG TAKE 1 TABLET BY EDGARDO TH EVERY DAY Orally Once a day Active Simvastatin 80 MG 1 tablet in the even ing Orally Once a day 07/18/2023 Active metFORMIN HCl 1000 MG TAKE 1 TABLET BY M OUTH TWICE DAILY WITH MEALS Active Furosemide 20MG 1 tab orally Twice a day for 90 days Active IMMUNIZATIONS Vaccine Route Administration Date Status Comme nts Tetanus Unknown 05/25/2011 Administered SARS-COV-2 Pfizer Unknown 10/07/2020 Administered SARS-COV-2 Pfizer Unknown 10/30/2020 Administered SARS-COV-2 Pfizer Unknown 05/08/2021 Administered Shingrix Unknown 05/08/2021 Administered SARS-COV-2 Pfizer Unknown 05/08/2021 Administered PPSV23 (Pnemovax) Unknown 10/19/2014 Refused Fluarix Quadrivalent Unknown 04/21/2015 Refused Fluarix Quadrivalent Unknown 05/22/2016 Refused PPSV23 (Pnemovax) Unknown 12/13/2016 Refused Fluarix Quadrivalent Unknown 03/12/2017 Refused Fluarix Quadrivalent Unknown 05/12/2018 Refused PPSV23 (Pnemovax) Unknown 11/21/2018 Refused Fluarix Quadrivalent Unknown 06/11/2019 Refused kulwinder rgic to flu shots PPSV23 (Pnemovax) Unknown 12/16/2020 Refused SOCIAL HISTORY Tobacco Use: Social History Observation Description Date Details (start date - stop date) Never Smoker NA - NA Sex Assigned At : Social History Observation Description Sex Assigned At Unknown Tobacco Use/Smoking Question Answer Notes Patient is a nonsmoker Additional Findings: Tobacco Non-User Cu rrent non-smoker, currently using no form of tobacco Alcohol Screen Question Answer Notes Did you have a drink containing alcohol in the p ast year? 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) Active confirmed 419403181 Problem Essential hypertensi on (I10) Active confirmed 14279766 Problem Type 2 diabetes mellitus without complication (E11.9) Active confirmed 93834396 Problem Cervical disc diseas e (M50.90) Active confirmed 708054562 Problem Obstructive sleep apnea (G47.33) Active confirmed 33624149 Problem Pure hypercholesterolemia (E78.00) Active confirmed 931971616 Problem Chronic kidney disease, unspecified CKD stage (N18.9) Active confirmed 084543142 Problem Foot drop, right (M21.371) Active confirmed 156635237321653 VITAL SIGNS Blood pressure diastolic 78 mm Hg 04/14/2024 misael ght is up 3 pounds since 01-17-24 Height 72 in 04/14/2024 weight is up 3 pounds since 01-17-24 Blood pressure systolic 142 mm Hg 04/14/2024 weig ht is up 3 pounds since 01-17-24 Weight 334 lbs 04/14/2024 weight is up 3 pounds since 01-17-24 BMI 45.29 kg/m2 04/14/2024 weight is up 3 pounds since 01-17-24 Encounters Encounter Location Date Provider Diagnosis Srinivas Moya MD [address] [place] [address] [id number] 07/12/2023 Srinivas Moya Type 2 diabetes genna itus without complication E11.9 ; Annual physical exam Z00.00 ; Obstructive sleep apnea G47.33 ; Essential hypertension I10 ; Pure hypercholesterolemia E78.00 ; Chronic kidney disease, unspecified CKD stage N18.9 ; Lymphocytosis D72.820 ; Colon cancer screening Z12.11 and Depression screening Z13.31 Srinivas Moya MD [address] [place] [address] Drive [address] [place] [address] [id number] 04/14/2024 Srinivas Moya Type 2 diabetes genna itus without complication E11.9 and Bilateral leg edema R60.0 Srinivas Moya MD [address] [place] [address] [id number] 01/13/2024 Srinivas Moya Type 2 diabetes genna itus without complication E11.9 and Pure hypercholesterolemia E78.00 Srinivas Moya MD [address] [place] [address] [id number] 07/10/2024 Srinivas Moya Essential hypertensi on I10 ; Type 2 diabetes mellitus without complication E11.9 ; Pure hypercholesterolemia E78.00 ; Chronic kidney disease, unspecified CKD stage N18.9 and Lymphocytosis D72.820 Srinivas Moya MD [address] [place] [address] [id number] 01/17/2024 Srinivas Moya Type 2 diabetes genna itus without complication E11.9 ; Pure hypercholesterolemia E78.00 and Bilateral leg edema R60.0 Srinivas Moya MD [address] [place] [address] [id number] 07/16/2023 Srinivas Moya Type 2 diabetes genna itus without complication E11.9 Srinivas Moya MD [address] [place] [address] [id number] 07/18/2023 Srinivas Moya MD [address] [place] [address] [id number] 08/13/2023 Srinivas Moya Type 2 diabetes genna itus without complication E11.9 Srinivas Moya MD [address] [place] [address] [id number] 04/10/2024 Srinivas Moya ASSESSMENTS Encounter Date Diagnosis Assessment Notes Treatment Notes Treatment Clinical Notes 07/12/2023 Annual physical exam (ICD-10 - Z00.00) labs reviewed and discused with patient 07/12/2023 Type 2 diabetes genna itus without complication (ICD-10 - E11.9) good aic, will continue current regiment 04/14/2024 Type 2 diabetes genna itus without complication (ICD-10 - E11.9) sugars in 120 range and after eating 180 04/14/2024 Bilateral leg edema (ICD-10 - R60.0) patient verbalized nderstanding of medication and directions for use, will continue to monitor 01/13/2024 Type 2 diabetes genna itus without complication (ICD-10 - E11.9) 01/13/2024 Pure hypercholestero lemia (ICD-10 - E78.00) 07/10/2024 Essential hypertensi on (ICD-10 - I10) 01/17/2024 Type 2 diabetes genna itus without complication (ICD-10 - E11.9) doing well on present meds. has gained some weight but the nurse thinks it was the old scale, will continue current regiment 01/17/2024 Pure hypercholestero lemia (ICD-10 - E78.00) has adequate control, will continue current regiment 07/16/2023 Type 2 diabetes genna itus without complication (ICD-10 - E11.9) 08/13/2023 Type 2 diabetes genna itus without complication (ICD-10 - E11.9) 07/12/2023 Obstructive sleep ap franco (ICD-10 - G47.33) using cpap regularly 07/10/2024 Type 2 diabetes genna itus without complication (ICD-10 - E11.9) 01/17/2024 Bilateral leg edema (ICD-10 - R60.0) will conntnue to use Lasix prn with edema goes every couple weeks and takes a lasix and it goes away 07/12/2023 Essential hypertensi on (ICD-10 - I10) doing well, will continue current regiment 07/10/2024 Pure hypercholestero lemia (ICD-10 - E78.00) 07/12/2023 Pure hypercholestero lemia (ICD-10 - E78.00) adequate, will continue current regiment 07/10/2024 Chronic kidney disea se, unspecified CKD stage (ICD-10 - N18.9) 07/12/2023 Chronic kidney disea se, unspecified CKD stage (ICD-10 - N18.9) 07/10/2024 Lymphocytosis (ICD-1 0 - D72.820) 07/12/2023 Lymphocytosis (ICD-1 0 - D72.820) has resolved, will continue to monitor 07/12/2023 Colon cancer screeni ng (ICD-10 - Z12.11) guaiac negative 07/12/2023 Depression screening (ICD-10 - Z13.31) negative screen PLAN OF TREATMENT Pending Test Test Name Order Date Electrocardiogram (EKG) 05/10/2017 Electrocardiogram (EKG) 05/16/2018 Complete Blood Count Auto Diff 5 Comprehensive [place]. Panel Fast 5 Next Appt Details Provider Name:Srinivas Loyola ier, 07/16/2024 08:30:00 AM, [address] [place] [address], [address], [phone], Insurance Providers Payer Name Payer Address Payer Phone Subscriber Number Group Number Insured Name Patient Relationship to Insured Coverage Start Date Coverage End Date MEDICARE NHIC [employer] [address] [place] [address] [id number] Maximiliano Ovalle Self - patient is the insured [facility] [address] [place] [address] [id number] Maximiliano Ovalle Self - patient is the insured MEDICAL (GENERAL) HISTORY Medical History History ICD Code hypertension sleep apnea diabetes mellitus dropped foot carpal tunnel colonoscopy 2007 neg. due in 2017, colon oscopy done 04/04/18 due in 10 years
--- OUTSIDE RECORDS SUMMARY | 2024-07-10 12:56 | XMS_ITS | Data Portability ---
Author Organization [facility], Main Office Address [address] [place] [address] Care Team Providers Care Quilt Maker Name Role Phone CLEMENCIA BARRERA Food Order Expediter MEMO THORNE Primary Care Provider Assessment No assessment recorded. Plan of Treatment Reminders Order Date Submit Date Provider Last Modified By Organization Details Last Modified Time Details Appointments None record ed. Lab None record ed. Referral None record ed. Procedures None record ed. Surgeries None record ed. Imaging None record ed. Medication Orders None record ed. Patient TargetsNo targets recorded. Patient Instructions Encounter Date Encounter Id Patient Instructions Last Modified By Organization Details Last Modified Time 11/15/2017 [id number] Maximiliano is here for a 1 time evaluation for work-related injury that happened on 12/05/2016. He reports that he was lifting boxes of paper. He has had multiple other work-related injuries. He states his pain worsens when he is walking, standing, driving, bending, lifting. He does find some improvement with sitting or lying down. He reports weakness and numbness in the right leg. He states his pain can be as elevated as a 9/10. Post surgery he underwent 2 months of physical therapy with no improvement. He has not had any steroid injections post surgery. He has not had any post surgery imaging. Post surgery he only returned to light duty status in August for approximately 2 months. He last worked on 10/18/2017. On examination he is able to go from a seated to a standing position. He ambulates slowly but essentially with a normal gait. He is able to walk on his toes but is not able to walk on his heels due to a right footdrop. He does have overall weakness throughout the right anterior tibialis, EHL, and gastrocnemius at 4/5. He has 2/4 patellar reflexes bilaterally, absent Achilles reflexes bilaterally. He has worsening pain with back extension. He has numbness in the L4 and S1 dermatome on the right leg. He has good range of motion of the neck. He has intact upper extremity strength throughout the deltoid, bicep, tricep, and hand intrinsics. He does have numbness in both hands. Biceps reflex is diminished at 1/4 tricep is 2/4 and brachioradialis is 2/4 bilaterally. Patient does have a MRI from previous surgery performed on 01/03/2017. At that time he had left leg pain. This did reveal a right disc herniation at L3-4 compressing the right L3 nerve root as well as moderate left foraminal stenosis. He also had left disc herniation at the L4-5 level causing moderate central and severe left foraminal stenosis, moderate right foraminal stenosis. According to the patient, he underwent a left L4-5 discectomy. I did discuss with the patient our recommendations would be he undergo a MRI with and without gadolinium of the lumbar spine. as well as an EMG of the right lower extremity. He also might benefit being seen by pain management. I do believe he continues to have work capacity of light duty. No images were ordered, no medications were prescribed, no follow-up scheduled. [email or web address] Not available 11/15/2017 18:32:12 Reason for Referral None Reported. Problems Name Problem SNOMED Code Status Onset Date Resolution Date Notes Provider Name and Address Organization Details Recorded Time Spinal stenosis of lumbar region 95130350 Active [address], [place], [address], [facility] 8 10:30:28 Lumbar radiculopath y 774336677 Active [address], [place], [address], [facility] 8 10:30:29 Body mass index 40+ - severely obese 586955535 Active [address], [place], [address], [facility] 8 10:30:38 Herniation of nucleus pulposus 33479175 Active 2017 Saad Olivo PA-C [address], [place], [address], [facility] 8 10:30:41 Problem Notes None recorded. Procedures Surgical History Date Name Laterality Status Provider Name and Address Organization Details Recorded Time 04/01/20 17 Back Surgery completed Saray Conticello [facility] 11/15/2017 15:05:41 Carpal Tunnel Surgery completed Saray Conticello [facility] 11/15/2017 15:06:02 Back Surgery completed Saray Conticello [facility] 11/15/2017 15:06:20 Orthopedic Surgery completed Saray Conticello [facility] 11/15/2017 15:06:38 Imaging Results None recorded. Procedure Notes None recorded. Medical Equipment None Reported. Allergies No known drug allergies Medications Name Sig Start Date Stop Date Status Note LastModified by Organization Details LastModified Time ibuprofen 800 mg tablet active Not Available Not Available No t Available meloxicam 15 mg tablet active Not Available Not Available No t Available simvastatin 80 mg tablet active Not Available Not Available No t Available metformin 1,000 mg tablet active Not Available Not Available Not Available indomethacin 50 mg capsule active Not Available Not Availabl e Not Available gabapentin 300 mg capsule active Not Available Not Available N ot Available lisinopril 5 mg tablet active Not Available Not Available No t Available furosemide 20 mg tablet active Not Available Not Available No t Available ibuprofen 600 mg tablet active Not Available Not Available No t Available oxycodone 5 mg tablet active Not Available Not Available Not Available Truetrack Test strips active Not Available Not Available Not Available Cialis 20 mg tablet active Not Available Not Available Not Available TRUEplus Lancets 30 gauge active Not Available Not Available Not Available Vitals Date Recorded Body height Body mass index (BMI) Body weight Body temperature Provider Name and Address Organization Details Last Updated DateTime 11/15/2017 185.42 cm 41.8 kg/m2 122772.0 6 g 98.6 [degF] Saray Conticello [facility] 11/15/2017 15:03:58 Social History Question Answer Notes LastModified by Organizat ion Details LastModified Time Tobacco Smoking Status Never Smoker Saray moseley, [facility] 11/15/2017 15:04:45 What Is Your Level Of Alcohol Consumption? None Information not available 11/15/2017 What Is Your Level Of Caffeine Consumption? Moderate Information not available 11/15/2017 Are You Currently Employed? Yes Information not available 11/15/2017 Which Illicit Or Recreational Drugs Have You Used? 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 11/15/2017 Information not available 01/28/2019 Work Related Injury? Yes Information not available 11/15/2017 Sex: Unknown Functional Status None recorded. Mental Status None recorded. Family History Relationship Description Onset Age of this Age Resolved Age Notes LastModified by Organization Details LastModified Time Mother Family history of malignant neoplasm [email or web address] Not available 11/05 15:04:37 Medical History Condition Response Neck Injury Y Diabetes Y Back Problems Y Spine/Back Problems Y Neurological Problems Y Past Encounters Encounter ID Performer Location Encounter Start Date Encounter Closed Date Diagnosis/Indication Diagnosis SNOMED-CT Code Diagnosis ICD10 Code [id number] Denzel Loredo MD Main Office [address] [facility] [address] [place] [address] 11/15/2017 09:04:13 11/15/2017 10:08:01 Lumbar radiculopathy 937080467 M54.16 Herniation of nucleus pulposus 63807509 M53.80 Spinal [address]idel[address] nosis of lumbar region 04525342 M48.062 Body mass index 40+ - severely obese 489722638 Z68.41 Health Concerns Section Related Observation LastModified by Organization Detai ls LastModified Time None Recorded Concern Status LastModified by Organization Details LastModified Time None Recorded Advance Directives Directive None Recorded Payers Encounter Date Sequence Insurance Name Policy Number Policy Alvarez Covered Member ID Alvarez Member ID Guarantor Name 11/15/2017 [employer] [facility] Maximiliano Ovalle Notes Date Note Type Note Provider Name and Address Organization Details Recorded Time 11/15/2017 text/html L-spineReported bypatient.Location: right; deep Quality:aching; deep; constant; not changing Severity:pain level 5/10; worst pain 10/10 Duration:1 years Timing:morning; daytime; nighttime Context:work injury (12/05/2016); lifting cases of copy paper Alleviating Factors:lying down Aggravating Factors:sitting; standing; walking; lifting; carrying; twisting; bending/squatting; pushing/pulling; weightbearing Associated Symptoms:no tingling; no swelling; no redness; no warmth; no ecchymosis; no catching/locking; no popping/clicking; no buckling; no grinding; no instability; no radiation down leg; no drainage; no fever; no chills; no weight loss; no change in bowel/bladder habits;weakness;num bness Previous Surgery:surgical procedure: (left l4-5 decompression 04/01/2017) Prior Imaging:MRI ([facility] 01/03/2017) Previous Injections:none Previous PT:did not help Work Related:yes Working:no; returned to work light duty x 2 mos in August 2017. last worked 10/18/2017. Denzel Loredo MD [address] [place] [address], [phone], [facility] 11/15/2017 18:32:57
== END 2024-07-10 11:06 | disposition home or self-care (01) ==
LOC: HO.LNP 11:05
PROVIDERS: Visit Provider Internal Medicine
DX: I10 Essential (primary) hypertension (principal); E11.9 Type 2 diabetes mellitus without complications; E78.00 Pure hypercholesterolemia, unspecified; N18.9 Chronic kidney disease, unspecified; D72.820 Lymphocytosis (symptomatic); Z12.5 Encounter for screening for malignant neoplasm of prostate
CPT/HCPCS: 80053; 80061; 81001; 82043; 82570; 83036; 84153; 85025

== ENCOUNTER 2025-01-11 10:20 | Outpatient (REF) | payer MEDICARE, SELFPAY ==
--- OUTSIDE RECORDS SUMMARY | 2025-01-11 11:09 | XMS_ITS | Encounter Summary ---
Author Organization [facility] Address [address] [place] [address] Care Team Providers Care Automobile Repair Service Estimator Name Role Phone Unavailable Primary Care Provider Unavailabl e Encounter Details Date Type Department Care Team (Late st Contact Info) Description 08/24/2019 Scanned Document [facility] NEUROS[facility]GERY SCAN Neurosurgery, Scan Social History Tobacco Use Types Packs/Day Years Used Date Smoking Tobacco: Never Assessed Sex and Gender Information Value Date Recorded Sex Assigned at Not on file Legal Sex Male 9:45 AM EDT Gender Identity Not on file Sexual Orientation Not on file documented as of this encounter Plan of Treatment Not on file documented as of this encounter Visit Diagnoses Not on filedocumented in this encounter
--- OUTSIDE RECORDS SUMMARY | 2025-01-11 11:10 | XMS_ITS | Patient Health Record ---
Author Organization Srinivas Moya MD Address [address] [place] [address] [phone] Support Name Relationship Address Phone Jose Stovall Caregiver [facility] [address] [place] [address] [phone] Srinivas Moya Caregiver [facility] [address] [place] [address] [phone] MisaelEaston Caregiver [facility] janette [address] [place] [address] [phone] Gonzalez Subramanian Caregiver [facility] [address] [place] [address] [phone] GRETCHEN MCCULLOUGH Caregiver [facility] [address] [place] [address] [phone] PEGGY TREADWELL Caregiver [facility] [address] [place] [address] [phone] Krysta Dominique Caregiver [facility] [address] [place] [address] [phone] MASSIEL NUÑEZ Caregiver [facility] [address] [place] [address] [phone] Oscar Duran Caregiver [facility] [address] [place] [address] [phone] GIGI CROWLEY Emergency Contact [address] [place] [address] Maximiliano Ovalle Guarantor Unknown Care Team Providers Care Nurse Healthcare Manager Name Role Phone Srinivas Moya Primary Care Provider Allergies Allergen (clinical drug ingredient) Drug/Non Drug Allergy documented on EMR Reaction Allergy Type Onset Date Status Vaccine product containing Influenza virus antigen (medicinal product) flu vaccine (uncoded) hives Allergy Active Results Component Value Reference Range Notes Liver Panel Reviewed date:01/13/2024 04:51:38 PM Interpretation: Performing Lab:[facility], [address] [place] [phone] Notes/Report: Bilirubin Total 0.5 0.0-1.0 mg/dL Bilirubin Direct 0.2 0.0-0.5 mg/dL Aspartate Amino Transferase 20 5-37 U/L Alanine Aminotransferase 23 0-40 U/L Total Protein 7.1 6.5-8.0 g/dL Albumin Level 4.2 3.5-5.0 g/dL Alkaline Phosphatase 62 39-117 U/L Glucose Fasting Reviewed date:01/13/2024 04:44:22 PM Interpretation: Performing Lab:[facility], [address] [place] [phone] Notes/Report: Glucose Fasting 130 60-99 mg/dL A fasting glucose of 126 mg/dl or greater on more than one occasion is considered diagnostic of diabetes. Lipid Panel with Reflex Reviewed date:01/13/2024 04:49:17 PM Interpretation: Performing Lab:[facility], [address] [place] [phone] Notes/Report: Triglycerides 99 <150 mg/dL Desirable Triglyceride: [...] A1c Reviewed date:01/13/2024 12:23:02 PM Interpretation: Performing Lab:[facility], [address] [place] [phone] Notes/Report: Hemoglobin A1c % 7.2 <6.0 % [...] average glucose, using the formula of the V4T-Swdftaw Average Glucose study (ADAG), Diabetes Care, Vol.31,#8, 2007 Complete Blood Count Auto Di ff Reviewed date:07/10/2024 03:00:23 PM Interpretation: Performing Lab:[facility], [address] [place] [address] Notes/Report: White Blood Count 5.5 4.8-10.8 X10*3/uL [...] NRBC Abs Auto 0.000 0.0-0.012 X10*3/uL Comprehensive [place]. Panel Fa st Reviewed date:07/10/2024 03:00:02 PM Interpretation: Performing Lab:[facility], [address] [place] [phone] Notes/Report: Sodium 143 135-145 mmol/L Potassium 4.1 [...] Panel Reviewed date:07/10/2024 12:20:14 PM Interpretation: Performing Lab:[facility], [address] [place] [phone] Notes/Report: Triglycerides 108 <150 mg/dL Desirable Triglyceride: [...] (Free>4and<10) Reviewed date:07/10/2024 12:26:54 PM Interpretation: Performing Lab:[address] [phone] Notes/Report: PSA,Total (Free>4and<10) 0.85 0.00-4.00 ng/mL A [...] Random Reviewed date:07/10/2024 12:26:44 PM Interpretation: Performing Lab:[address] [phone] Notes/Report: Creatinine Urine 131.57 Microalbumin Urine 73.0 Microalbum/Creatinine Ratio Ur 55.4 <30 ug/mg cr Albumin/Creatinine Ratio Reference Ranges: Normal: < 30 ug/mg creatinine Microalbuminuria: 30 - 300 ug/mg creatinine Clinical Albuminuria: > 300 ug/mg creatinine Hemoglobin A1c Reviewed date:07/10/2024 12:27:02 PM Interpretation: Performing Lab:[address] [phone] Notes/Report: Hemoglobin A1c % 7.1 <6.0 % [...] average glucose, using the formula of the D2Z-Dvlrtvf Average Glucose study (ADAG), Diabetes Care, Vol.31,#8, Feb. 2007 UA ClnCatch+Micro w/rflx Cul t Reviewed date:07/10/2024 12:31:34 PM Interpretation: Performing Lab:[facility], [address] [place] [phone] Notes/Report: Urine, Clean Catch Color Urine Yellow Appearance Urine Clear PH 5.5 5.0-9.0 Glucose Urine UA >=1000 Negative mg/dL Urine Blood Negative Negative Specific [place] - Urine >= 1.030 1.005-1.025 Urine Protein 30 (1+) Neg-Trace mg/dL Urine Ketones Negative Negative mg/dL Nitrite Urine Negative Negative Leukocyte Esterase Urine Negative Negative RBC Urine 0-2 0-2 /HPF WBC Urine 0-5 0-5 /HPF Squamous Epithelial Cell Urine 0-2 0-2 /HPF Bacteria Urine None Seen None Seen Hyaline Casts Urine 0-2 0-2 /LPF Occult Blood, Stool, Guaiac Reviewed date:07/16/2024 12:23:30 PM Interpretation:Negative Performing Lab: Notes/Report: Negative Occult Blood, Stool, Guaiac Neg Ciara Crespo Reviewed date:01/13/2024 12:24:25 PM Interpretation: Performing Lab:[facility], [address] [place] [phone] Notes/Report: Ciara Crespo See Note Specimen held untested for 24 hours; Call to request Chemistry testing. Ciara Crespo (Not yet reviewed by provider) Interpretation: Performing Lab:[facility], [address] [place] [phone] Notes/Report: Ciara Crespo See Note Specimen held untested for 24 hours; Call to request Chemistry testing. Reason For Referral No Information Medications Medication SIG (Take, Route, Frequency, Duration) Notes Start Date End Date Status Lisinopril 5 MG TAKE 1 TABLET BY EDGARDO TH EVERY DAY Orally Once a day for 90 days Active Indomethacin 50 1 capsule with food Orally Three times a day for 30 days Not-Taking TRUEplus Lancets 30G - use to check suga r invitro twice a day for 30 Active metFORMIN HCl 1000 MG TAKE 1 TABLET BY M OUTH TWICE DAILY WITH MEALS Orally twice for 90 days Active Ibuprofen 800 MG 1 tablet Orally Thre e times a day for 90 days Active Farxiga 10 MG TAKE 1 TABLET BY EDGARDO TH EVERY DAY Orally Once a day for 90 days Active Furosemide 20 MG 1 tablet Orally Once a day for 30 day(s) 04/14/2024 Active True Metrix Blood Glucose Test - TEST BS QD In Vitro daily for 90 days 06/17/2019 Active Simvastatin 80 MG TAKE 1 TABLET BY EDGARDO TH DAILY IN THE EVENING for 90 days Active Aspir-81 81 MG 1 tablet Orally Once a day Active Cialis 20MG take 1 tablet as nee ded Orally Once a day for 90 days Active True Focus Blood Glucose Strip - as directed In Vitro daily for 30 Active Immunizations Vaccine Route Administration Date Status Comme nts [...] flu shots PPSV23 (Pnemovax) Unknown 12/16/2020 Refused Social History Tobacco Use: Social History Observation Description Date Details (start date - stop date) Never Smoker NA - NA Tobacco Use/Smoking Question Answer Notes Patient is a nonsmoker Additional Findings: Tobacco Non-User Cu rrent non-smoker, currently using no form of tobacco Alcohol Screen Question Answer Notes Did you have a drink containing alcohol in the p ast year? 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) Active confirmed Problem 79350586 Essential hypert ension (I10) Active confirmed Problem 83417949 Type 2 diabetes mellitus without complication (E11.9) Active confirmed Problem 253927184 Cervical disc di sease (M50.90) Active confirmed Problem 27548196 Obstructive slee p apnea (G47.33) Active confirmed Problem 699106048 Pure hypercholesterolemia (E78.00) Active confirmed Problem 328914164 Chronic kidney disease, unspecified CKD stage (N18.9) Active confirmed Problem 130264101972073 Foot drop, right (M21.371) Active confirmed Vital Signs Blood pressure diastolic 80 mm Hg 07/16/2024 Height 72 in 07/16/2024 Blood pressure systolic 142 mm Hg 07/16/2024 Weight 334 lbs 07/16/2024 BMI 45.29 kg/m2 07/16/2024 Encounters Encounter Location Date Provider Diagnosis Srinivas Moya MD [address] [place] [address] [id number] 01/13/2024 Srinivas Moya Type 2 diabetes genna itus without complication E11.9 and Pure hypercholesterolemia E78.00 Srinivas Moya MD [address] [place] [address] Drive [address] [place] [address] [id number] 07/10/2024 Srinivas Moya Essential hypertensi on I10 ; Type 2 diabetes mellitus without complication E11.9 ; Pure hypercholesterolemia E78.00 ; Chronic kidney disease, unspecified CKD stage N18.9 and Lymphocytosis D72.820 Srinivas Moya MD [address] [place] [address] [id number] 01/11/2025 Srinivas Moya Type 2 diabetes genna itus without complication E11.9 and Pure hypercholesterolemia E78.00 Srinivas Moya MD [address] [place] [address] [address] [place] [address] [id number] 01/17/2024 Srinivas Moya Type 2 diabetes genna itus without complication E11.9 ; Pure hypercholesterolemia E78.00 and Bilateral leg edema R60.0 Srinivas Moya MD [address] [facility] [address] [place] [address] [id number] 04/14/2024 Srinivas Moya Type 2 diabetes genna itus without complication E11.9 and Bilateral leg edema R60.0 Srinivas Moya MD [address] [place] [address] [id number] 07/16/2024 Srinivas Moya Type 2 diabetes genna itus without complication E11.9 ; Essential hypertension I10 ; Obstructive sleep apnea G47.33 ; Pure hypercholesterolemia E78.00 ; Colon cancer screening Z12.11 and Depression screening Z13.31 Srinivas Moya MD [address] [place] [address] [id number] 04/10/2024 Srinivas Moya MD [address] [place] [address] [id number] 09/04/2024 Srinivas Moya Essential hypertensi on I10 ; Pure hypercholesterolemia E78.00 and Type 2 diabetes mellitus without complication E11.9 Srinivas Moya MD [address] [place] [address] [id number] 12/04/2024 Srinivas Moya Pure hypercholestero lemia E78.00 and Bilateral leg edema R60.0 Assessments Encounter Date Diagnosis (ICD Code) Assessment Notes Treatment Notes Treatment Clinical Notes Section Notes 01/13/2024 Type 2 diabetes mellitus without complication (ICD-10 - E11.9) 01/13/2024 Pure hypercholesterolemia (ICD-10 - E78.00) 07/10/2024 Essential hypertensi on (ICD-10 - I10) 07/10/2024 Type 2 diabetes mellitus without complication (ICD-10 - E11.9) 01/11/2025 Type 2 diabetes mellitus without complication (ICD-10 - E11.9) 01/17/2024 Type 2 diabetes mellitus without complication (ICD-10 - E11.9) doing well on present meds. has gained some weight but the nurse thinks it was the old scale, will continue current regiment 01/17/2024 Pure hypercholesterolemia (ICD-10 - E78.00) has adequate control, will continue current regiment 04/14/2024 Type 2 diabetes mellitus without complication (ICD-10 - E11.9) sugars in 120 range and after eating 180 04/14/2024 Bilateral leg edema (ICD-10 - R60.0) patient verbalized nderstanding of medication and directions for use, will continue to monitor 07/16/2024 Type 2 diabetes mellitus without complication (ICD-10 - E11.9) doing well on meds, will continue curent regiment 07/16/2024 Essential hypertensi on (ICD-10 - I10) doing well on meds, will continue current regiment 09/04/2024 Essential hypertensi on (ICD-10 - I10) 12/04/2024 Pure hypercholesterolemia (ICD-10 - E78.00) 07/10/2024 Pure hypercholesterolemia (ICD-10 - E78.00) 01/11/2025 Pure hypercholesterolemia (ICD-10 - E78.00) 01/17/2024 Bilateral leg edema (ICD-10 - R60.0) will conntnue to use Lasix prn with edema goes every couple weeks and takes a lasix and it goes away 07/16/2024 Obstructive sleep ap franco (ICD-10 - G47.33) using cpap 09/04/2024 Pure hypercholesterolemia (ICD-10 - E78.00) 12/04/2024 Bilateral leg edema (ICD-10 - R60.0) 07/10/2024 Chronic kidney disea se, unspecified CKD stage (ICD-10 - N18.9) 07/16/2024 Pure hypercholesterolemia (ICD-10 - E78.00) doing well on meds, will continue current regiment 09/04/2024 Type 2 diabetes mellitus without complication (ICD-10 - E11.9) 07/10/2024 Lymphocytosis (ICD-1 0 - D72.820) 07/16/2024 Colon cancer screeni ng (ICD-10 - Z12.11) guaiac negative 07/16/2024 Depression screening (ICD-10 - Z13.31) negative screen Plan Of Treatment Pending Test Test Name Order Date Electrocardiogram (EKG) 05/10/2017 Electrocardiogram (EKG) 05/16/2018 Liver Panel 01/11/2025 Glucose Fasting 01/11/2025 Lipid Panel with Reflex 01/11/2025 Hold Gold 01/11/2025 Hemoglobin A1c 01/11/2025 Next Appt Details Provider Name:Srinivas pierson, 01/18/2025 10:15:00 AM, [address] [place] [address], [address], [place], [place], [id number], Provider Name:Srinivas pierson, 07/16/2025 07:00:00 AM, [address], [address], [place], [place], [id number], Provider Name:Srinivas Loyola ier, 07/23/2025 11:00:00 AM, [address], [address], [place], [id number], Insurance Providers Payer Name Payer Address Payer Phone Subscriber Number Group Number Insured Name Patient Relationship to Insured Coverage Start Date Coverage End Date [facility] [address] [address] [place] [phone] [id number] Maximiliano Ovalle Self - patient is the insured Medical (General) History Medical History History ICD Code hypertension sleep apnea diabetes mellitus dropped foot carpal tunnel colonoscopy 2007 neg. due in 2017, colon oscopy done 04/04/18 due in 10 years
--- OUTSIDE RECORDS SUMMARY | 2025-01-11 11:10 | XMS_ITS ---
Author Name [facility] Organization Unknown Encounters Encounter Type Encounter Reason Primary Diagnosis Location Date Ambulatory [facility] 04/17/2024 Care Team Organization Name Specialty Phone Email Start Date End Da te [facility] 10/31/2024 [facility], [facility], Primary Care 03/30/2021 02/24/2024
--- OUTSIDE RECORDS SUMMARY | 2025-01-11 11:10 | XMS_ITS | Clinical Summary ---
Author Organization [facility] Address [address] [place] [address] Phone Care Team Providers Care Entertainment & Media Correspondent Name Role Phone Srinivas Moya MD Primary Care Provider [phone] Allergies No known active allergies Medications aspirin 81 mg chewable tablet Chew 1 tablet (81 mg total) 1 (one) time each day. Active furosemide (LASIX) 20 mg tablet Take 1 tablet (20 mg total) by mouth 2 times daily as needed. Active ibuprofen (ADVIL,MOTRIN) 600 mg tablet Take 1 tablet (600 mg total) by mouth every 6 hours as needed. 7 Active lisinopriL (PRINIVIL,ZESTR IL) 5 mg tablet Take 5 mg by mouth daily. Active metFORMIN (GLUCOPHAGE) 500 mg tablet Take 500 mg by mouth 2 (two) times a day with meals. Active tadalafiL (Cialis) 20 mg tablet TK 1 T PO QD PRN 8 Active atorvastatin (LIPITOR) 80 mg tablet Take 1 tablet (80 mg total) by mouth 1 (one) time each day. Active DAPAGLIFLOZIN PROPANEDIOL ORAL Take by mouth. Dapagliflozin Propanediol 10 MG Tab Sig - Route: Take 10 mg by mouth daily. - Oral Class: Historic Active Active Problems Problem Noted Date Diagnosed Date Carpal tunnel syndrome 04/21/2024 Foot drop 04/21/2024 HTN (hypertension) 04/21/2024 Sleep apnea 04/21/2024 T2DM (type 2 diabetes mellitus) (CMS/HCC V24, CM S/HCC V28) 04/21/2024 Encounters Date Type Department Care Team Description 12/15/2024 3:15 PM EDT Office Visit Orthopedic [facility] [address] [phone] Paolo Cortes DPM Acquired hammer toe of right foot (Primary Dx); Diabetic mononeuropathy simplex ([facility] V24, [facility] V28); Type II diabetes mellitus with peripheral circulatory disorder ([facility] V24, [facility] V28); Pain in toe of left foot; Dermatophytosis of nail; Pain in toe of right foot from Last 3 Months Social History Tobacco Use Types Packs/Day Years Used Date Smoking Tobacco: Never Assessed Sex and Gender Information Value Date Recorded Sex Assigned at Not on file Legal Sex Male 12:44 AM EST Gender Identity Not on file Sexual Orientation Not on file Last Filed Vital Signs Vital Sign Reading Time Taken Comments Blood Pressure - - Pulse - - Temperature - - Respiratory Rate - - Oxygen Saturation - - Inhaled Oxygen Concentration - - Weight 150 kg (330 lb) 09/02/2024 3:30 PM EST Height 154.9 cm (5' 0.98 ) 09/02/2024 3:30 PM ES T Body Mass Index 62.39 09/02/2024 3:30 PM EST Plan of Treatment Upcoming Encounters Date Type Department Care Team (Late st Contact Info) Description 03/17/2025 2:00 PM EDT Office Visit Orthopedic [place] [address] [phone] Paolo Cortes DPM [address] [address] Health Maintenance Due Date Last Done Comments Diabetes: Annual GFR (Glomerular Filtration Rate) 1961 Diabetes: Annual Foot Exam 1971 Diabetes: Annual Retina Eye Exam 1971 Pneumococcal Vaccine: 50+ Years (1 of 2 - PCV) 1980 Pneumococcal Vaccine: Pediatrics (0 to 5 Years) and At-Risk Patients (6 to 64 Years) (1 of 2 - PCV) 1980 Cholesterol Screening (Lipid Panel) 01/28/2024 Colorectal Cancer Screening: Colonoscopy 01/28/2024 Depression Screening 01/28/2024 HIV Screening 01/28/2024 Hepatitis C Screening 01/28/2024 Medicare Annual Wellness Visit 01/28/2024 Social Influencers of Health Screening 01/28/2024 COVID-19 Vaccine ( season) 2024 04/09/2023, 05/08/2021, 10/30/2020, Additional history exists Diabetes: Annual Urine Albumin-Creatinine Ratio (uACR) 04/21/2024 Diabetes: Blood Sugar Control Test (HGBA1C) 04/21/2024 Hypertension/CHF/CAD Annual BMP Blood Test 04/21/2024 Influenza Vaccine (#1) 2025 03/24/2010 DTaP,Tdap,and Td Vaccines (2 - Td or Tdap) 04/15/2033 04/15/2023 Zoster Vaccines Completed 07/07/2021, 05/08/2021 RSV Immunization Adult Patients Completed 04/15/2023 HIB Vaccines Aged Out No longer eligi ble based on patient's age to complete this topic HPV Vaccines Aged Out No longer eligi ble based on patient's age to complete this topic Hepatitis A Vaccines Aged Out No long er eligible based on patient's age to complete this topic Hepatitis B Vaccines Aged Out No long er eligible based on patient's age to complete this topic IPV Vaccines Aged Out No longer eligi ble based on patient's age to complete this topic MMR Vaccines Aged Out No longer eligi ble based on patient's age to complete this topic Meningococcal ACWY Vaccine Aged Out N o longer eligible based on patient's age to complete this topic Meningococcal B Vaccine Aged Out No l onger eligible based on patient's age to complete this topic RSV Immunization Patients Under 20 months Aged Out No longer eligible based on patient's age to complete this topic Varicella Vaccines Aged Out No longer eligible based on patient's age to complete this topic Insurance MEDICARE MEDICAID - [place] [facility] [place] [address] Care Teams Entertainment & Media Correspondent Relationship Specialty Start Date End Date Srinivas Moya MD [address] [place] [address] [address] [place] [id number] PCP - General Internal Medicine 12/07/16
--- OUTSIDE RECORDS SUMMARY | 2025-01-11 11:10 | XMS_ITS | Clinical Summary ---
Author Organization [facility] Address [address] [place] [address] Care Team Providers Care Technology Education Instructor Name Role Phone Srinivas Moya MD Primary Care Provider [phone] Allergies No known active allergies Medications Medication Sig Dispensed Refills Start Date End Date Status lisinopril (PRINIVIL,ZESTRIL) tablet 5 mg Take 5 mg by mouth daily. 0 Active metFORMIN (GLUCOPHAGE) tablet 500 mg Take 500 mg by mouth 2 (two) times a day with meals. 0 Active simvastatin (ZOCOR) 80 MG tablet Take 80 mg by mouth every night at bedtime. 0 Active furosemide (LASIX) 20 MG tablet Take 20 mg by mouth 2 (two) times a day as needed. 0 Active aspirin 81 MG chewable tablet Chew 81 mg by mouth daily. 0 Active ibuprofen (ADVIL,MOTRIN) 600 MG tablet Take 1 tablet (600 mg total) by mouth every 6 (six) hours as needed for pain. 30 tablet 0 12/05/2016 Active indomethacin (INDOCIN) 50 MG capsule TK 1 C PO TID WF 3 09/16/2017 Active CIALIS 20 MG tablet TK 1 T PO QD PRN 8 09/18/2017 Active Family History Medical History Relation Name Comments Cancer Mother Relation Name Status Comments Father does not know f ather Mother Social History Tobacco Use Types Packs/Day Years Used Date Smoking Tobacco: Never Smokeless Tobacco: Never Alcohol Use Standard Drinks/Week Comments No 0 (1 standard drink = 0.6 oz pur e alcohol) Sex and Gender Information Value Date Recorded Sex Assigned at Not on file Gender Identity Not on file Sexual Orientation Not on file Last Filed Vital Signs Vital Sign Reading Time Taken Comments Blood Pressure 179/94 12/05/2016 6:50 PM EDT Pulse 86 12/05/2016 6:50 PM EDT Temperature 36.8 C (98.2 F) 12/05/2016 6:50 PM EDT Respiratory Rate 18 12/05/2016 6:50 PM EDT Oxygen Saturation 96% 12/05/2016 6:50 PM EDT Inhaled Oxygen Concentration - - Weight 142.9 kg (315 lb) 11/21/2017 11:26 AM EDT Height 185.4 cm (6' 1 ) 11/21/2017 11:26 AM EDT Body Mass Index 41.56 11/21/2017 11:26 AM EDT Plan of Treatment Health Maintenance Due Date Last Done Comments Hepatitis C Screening 1961 COVID-19 Vaccine (#1) 02/18/1962 Depression Screening 1973 Preventative Health Evaluation 1979 DTap / Tdap / Td (1 - Tdap) 1980 Colon Cancer Screening (Colonoscopy) 2006 Shingrix-Zoster Vaccine (1 of 2) 2011 Influenza Vaccine (#1) 2025 RSV Adult > 60+ Yrs or Pregn ant (1 - 1-dose 75+ series) 2036 Hepatitis B Vaccines Aged Out No long er eligible based on patient's age to complete this topic Pneumococcal Vaccine Aged Out No long er eligible based on patient's age to complete this topic RSV Ped < 20 months Aged Out No longe r eligible based on patient's age to complete this topic Advance Directives For more information, please contact: [phone] Documents on File Type Date Recorded Patient Web Development Manager Expl anation Advance Directive and Living Will 12/07/2016 10:37 AM Care Teams Technology Education Instructor Relationship Specialty Start Date End Date Srinivas Moya MD [address] [place] [address] PCP - General Internal Medicine 12/07/16
--- OUTSIDE RECORDS SUMMARY | 2025-01-11 11:10 | XMS_ITS | Patient Health Record ---
Author Organization [facility] Address [address] [place] [address] Care Team Providers Care Cattle Dipper Name Role Phone Nita JEFFERY, Srinivas Primary Care Provider Castillo Douglas Jr, [place] Unavailable Reason For Referral No Information Medications Medication SIG (Take, Route, Frequency, Duration) Notes Start Date End Date Status metFORMIN HCl 500 MG 1 tablet with a cass l Orally twice a day Active Colyte with Flavor Packs 240 GM As directed Orally Over the specified time. 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) Active confirmed Problem 671878779 Screening for colon cancer (Z12.11) Active confirmed Problem 478759622 Long-term curren t use of high risk medication other than anticoagulant (Z79.899) Active confirmed Plan Of Treatment Future Test Test Name Order Date COLONOSCOPY 02/05/2018 Insurance Providers Payer Name Payer Address Payer Phone Subscriber Number Group Number Insured Name Patient Relationship to Insured Coverage Start Date Coverage End Date [employer] [address] [place] [address] [id number] MARCO ORTEGA Self - patient is the insured Medical (General) History Medical History History ICD Code colonoscopy 07-11-2007 past history of hemoccult po sitive stools on digital rectal exam by Dr Blackwood hypertension type II diabetes elevated cholesterol Surgical History Surgery Date(Month/Year) hand surgery back surgery X3 carpal tunnel release-both hands
--- OUTSIDE RECORDS SUMMARY | 2025-01-11 11:10 | XMS_ITS | Data Portability ---
Author Organization [facility], Main Office Address [address] [place] [address] Care Team Providers Care Track Welder Name Role Phone CLEMENCIA BARRERA Desulfurizer Hand MEMO THORNE Primary Care Provider Assessment No [...] Recorded Time Spinal stenosis of lumbar region 23043372 Active 2017 Saad lOivo PA-C [address], [place], [address], [place] [facility] 8 10:30:28 Lumbar radiculopath y 191115270 Active [address], [place], [address], [place] [facility] 8 10:30:29 Body mass index 40+ - severely obese 237467703 Active [address], [place], [address], [place] [facility] 8 10:30:38 Herniation of nucleus pulposus 02856599 Active 2017 Saad Olivo PA-C [address], [place], [address], [place] [facility] 8 [...] Updated DateTime 11/15/2017 185.42 cm 41.8 kg/m2 630809.0 6 g 98.6 [degF] Saray [place] [facility] 11/15/2017 15:03:58 Social History Question Answer Notes LastModified by Organizat ion Details LastModified Time Tobacco Smoking Status Never Smoker Saray [place], [place] [facility] 11/15/2017 15:04:45 What Is Your Level Of Caffeine Consumption? Moderate Information not available 11/15/2017 Which Illicit Or Recreational Drugs Have You Used? Never Information not available 11/15/2017 What Was The Date Of Your Most Recent Tobacco Screening? 11/15/2017 Information not available 01/28/2019 Work Related Injury? Yes Information not available 11/15/2017 Sex: Unknown Functional Status Question Answer Note LastModified by Organizat ion Details LastModified Time What is your level of alcohol consumption? None Information not available 11/15/2017 Are you currently employed? Yes Information not available 11/15/2017 What is your occupation? [email or web address] Information not available 11/11/2017 Mental Status None recorded. Family History Relationship [...] Diagnosis/Indication Diagnosis SNOMED-CT Code Diagnosis ICD10 Code Diagnosis Note 9935 Saad Olivo PA-C Main Office [address] [facility] [address] [place] [address] 11/15/2017 09:04:13 11/15/2017 10:08:01 Lumbar radiculopathy 109610002 M54.16 Herniation of nucleus pulposus 30639738 M53.80 Spinal fidelia nosis of lumbar region 92649864 M48.062 Body mass index 40+ - severely obese 697087537 Z68.41 Health Concerns Section Related Observation LastModified by Organization Detai ls LastModified Time None Recorded Concern Status LastModified by Organization Details LastModified Time None Recorded Advance Directives Directive None Recorded Payers Insurance Date Sequence Insurance Name Policy Number Policy Alvarez Covered Member ID Alvarez Member ID Guarantor Name 11/15/2017 [employer] [place] Ovalle Notes Date Note Type Note Provider [...] procedure: (left l4-5 decompression 04/01/2017) Prior Imaging:MRI ([facility] 01/03/2017) Previous Injections:none Previous PT:did not help Work Related:yes Working:no; returned to work light duty x 2 mos in August 2017. last worked 10/18/2017. Denzel Loredo MD [address] [place] [address] [address], [place], [address], [place] [facility] 11/15/2017 18:32:57
[2025-01-11 11:23] LABS: Hemoglobin A1C 138.8646 umol/L; Total Hemoglobin (HGBA1C) 3653.9994 umol/L
[2025-01-11 13:34] LABS: Alanine Aminotransferase 29 U/L (0-40); Albumin Level 4.4 g/dL (3.5-5.0); Alkaline Phosphatase 30 U/L (39-117); Aspartate Amino Transferase 31 U/L (5-37); Cholesterol 170 mg/dL (<200); HDL Cholesterol 50 mg/dL (>40); Total Protein 7.0 g/dL (6.5-8.0); Triglycerides 119 mg/dL (<150)
[2025-01-11 13:41] LABS: Reflex LDLD? No
== END 2025-01-11 10:21 | disposition home or self-care (01) ==
LOC: HO.LNP 10:20
PROVIDERS: Visit Provider Internal Medicine
DX: E11.9 Type 2 diabetes mellitus without complications (principal); E78.00 Pure hypercholesterolemia, unspecified
CPT/HCPCS: 80061; 80076; 82947; 83036